=== PATIENT | male | born 1985 | race Caucasian/White ===

== ENCOUNTER → 2022-01-25 | Outpatient (CLI) | payer BC ==
--- NOTE | 2022-01-25 16:53 | CARD ---
MR#: [id number] Date of Study: 01/25/2022 Ordering Physician: ARVIND SHEN, Referring Physician: ARVIND SHEN, Tech: [facility], T APPROVED REPORT EXAM: Two-dimensional and M-mode echocardiogram with Doppler and color Doppler. Other Information Quality : AverageHR: 90bpm Rhythm : NSR INDICATION Dyspnea 2D DIMENSIONS RVDd2.9 (2.9-3.5cm)Left Atrium(2D)3.6 (1.6-4.0cm) IVSd1.0 (0.7-1.1cm)Aortic Root(2D)3.2 (2.0-3.7cm) LVDd4.5 (3.9-5.9cm)PWd1.0 (0.7-1.1cm) LVDs2.1 (2.5-4.0cm)FS (%) 52.3 % SV77.4 mlLVEF(%)83.5 (>50%) Aortic Valve AoV Peak Sacha.129.3cm/Christiano Peak GR.6.7mmHg LVOT Peak Sacha.54.8cm/s Pulmonary Valve PV Peak [place]674.0cm/s Pulmonary Vein S1 Ukvwmsxm93.6cm/sD2 Hubarsfc31.0cm/s PVa [id number] LEFT VENTRICLE The left ventricle is normal size. There is normal left ventricular wall thickness. Left ventricular systolic function is normal. The ejection fraction is estimated at 60 to 65%. No regional wall motion abnormalities noted. The left ventricular diastolic function is normal. No left ventricle thrombus n oted on this study. There is no ventricular septal defect visualized. There is no left ventricular an eurysm. There is no mass noted in the left ventricle. RIGHT VENTRICLE The right ventricle is normal size. There is normal right ventricular wall thickness. The right ventr icular systolic function is normal. ATRIA The left atrium size is normal. The right atrium size is normal. The interatrial septum is intact wit h no evidence for an atrial septal defect or patent foramen ovale as noted on 2-D or Doppler imaging. AORTIC VALVE The aortic valve is normal in structure and function. No aortic regurgitation is present. There is no aortic valvular stenosis. There is no aortic valvular vegetation. MITRAL VALVE The mitral valve is normal in structure and function. There is no evidence of mitral valve prolapse. There is no mitral valve stenosis. There is no mitral valve regurgitation noted. TRICUSPID VALVE The tricuspid valve is normal in structure and function. There is no tricuspid valve regurgitation no mirna. There is no tricuspid valve prolapse or vegetation. There is no tricuspid valve stenosis. PULMONIC VALVE The pulmonary valve is normal in structure and function. There is no pulmonic valvular regurgitation. There is no pulmonic valvular stenosis. GREAT VESSELS The aortic root is normal in size. The ascending aorta is normal in size. The pulmonary artery is nor mal. The IVC is normal in size and collapses >50% with inspiration. PERICARDIAL EFFUSION There is no pleural effusion. There is no evidence of significant pericardial effusion. Critical Notification Critical Value: No <Conclusion> Left ventricular systolic function is normal. The ejection fraction is estimated at 60 to 65%. No regional wall motion abnormalities noted. No significant valvular abnormalities. There is no evidence of significant pericardial effusion. Signed by : Tip Purcell, Electronically Approved : 01/25/2022 16:53:07
== END ==
LOC: ECHO 14:54 → EDBD 15:00
PROVIDERS: ATTEND Internal Medicine Cardiovascular Disease
DX: I10 Essential (primary) hypertension (principal); R06.00 Dyspnea, unspecified
CPT/HCPCS: 93306; C8929